=== PATIENT | male | born 1990 | race Caucasian/White ===

== ENCOUNTER 2019-02-16 12:00 | Emergency (ER) | payer OTHER ==
[2019-02-16 12:16] VITALS: BP 158/101; PULSE 101
[2019-02-16] MEDS ORDERED: ceFAZolin 1 GM Vial IM ONE (12:21)
--- NOTE | 2019-02-16 12:28 | EDM.PDOC ---
ED HPI GENERAL MEDICAL PROBLEM - General Chief Complaint: Upper Extremity Injury/Pain Stated Complaint: CUT FINGER AT WORK Time Seen by Provider: 02/16/19 12:00 Source of Information: Reports: Patient History Limitations: Reports: No Limitations - History of Present Illness INITIAL COMMENTS - FREE TEXT/NARRATIVE: 28 YO WM presents to ER with avulsion injury to right index finger while at work. Pt reports he was fixing a tractor tire when he accidentally got his finger caught between the tire and the wheel hub causing a partial amputation of the tip of the right index finger. Pt came to ER immediately for evaluation after injury and states the bleeding was well controlled after applying pressure to wound. Pt was offered pain medication and he refused at this time. Onset: Sudden Onset Date: 02/16/19 Duration: Hour(s): (1) Location: Reports: Upper Extremity, Right Quality: Reports: Ache Severity: Moderate Improves with: Reports: None Worsens with: Reports: Movement Associated Symptoms: Reports: No Other Symptoms Treatments [employer]: Reports: Dressing(s) Right Finger-Index Pain Score (Numeric/FACES): 4 - Related Data Allergies Allergy/AdvReac Type Severity Reaction Status Date / Time Penicillins Allergy Hives Verified 02/16/19 12:38 Home Meds: Home Meds Doxycycline Monohydrate 100 mg PO BID #20 capsule 02/16/19 [Rx] traMADol [Ultram] 50 mg PO Q6H PRN #15 tab 02/16/19 [Rx] Past Medical History - Past Health History Medical/Surgical History: Denies Medical/Surgical History Social & Family History - Caffeine Use Caffeine Use: Reports: Coffee, Soda Review of Systems - Review of Systems Review Of Systems: See Below Constitutional: Reports: No Symptoms Eyes: Reports: No Symptoms Ears: Reports: No Symptoms Nose: Reports: No Symptoms Mouth/Throat: Reports: No Symptoms Respiratory: Reports: No Symptoms Cardiovascular: Reports: No Symptoms GI/Abdominal: Reports: No Symptoms Genitourinary: Reports: No Symptoms Musculoskeletal: Reports: Hand Pain Skin: Reports: Wound (partial amputation of right index finger tip) Neurological: Reports: No Symptoms Psychiatric: Reports: No Symptoms ED EXAM, GENERAL - Physical Exam Exam: See Below Exam Limited By: No Limitations General Appearance: Alert, WD/WN, No Apparent Distress Respiratory/Chest: No Respiratory Distress, Lungs Clear, Normal Breath Sounds, No Accessory Muscle Use, Chest Non-Tender Cardiovascular: Normal Peripheral Pulses, Regular Rate, Rhythm, No Edema, No Gallop, No JVD, No Murmur, No Rub GI/Abdominal: Normal Bowel Sounds, Soft, Non-Tender, No Organomegaly, No Distention, No Abnormal Bruit, No Mass Back Exam: Normal Inspection, Full Range of Motion, NT Extremities: Normal Range of Motion, No Pedal Edema, Normal Capillary Refill Neurological: Alert, Oriented, CN II-XII Intact, Normal Cognition, Normal Gait, Normal Reflexes, No Motor/Sensory Deficits Psychiatric: Normal Affect, Normal Mood Skin Exam: Warm, Dry, Normal Color, No Rash, Wound/Incision (partial amputation to right index finger tip) Lymphatic: No Adenopathy Course - Vital Signs Last Recorded V/S: Last Vital Signs Temp 36.2 C 02/16/19 12:13 Pulse 101 H 02/16/19 12:13 Resp 24 H 02/16/19 12:13 BP 158/101 H 02/16/19 12:13 Pulse Ox 99 02/16/19 12:13 - Orders/Labs/Meds Orders: Active Orders 24 hr Category Date Time Status Vaccines to be Administered [RC] PER UNIT ROUTINE Care 02/16/19 12:40 Active DRUG SCREEN, URINE [URCHEM] Stat Lab 02/16/19 12:19 Ordered ETHANOL BLOOD MEDICAL [CHEM] Stat Lab 02/16/19 12:19 Ordered Meds: Medications Discontinued Medications Generic Name Dose Route Start Last Admin Trade Name Freq PRN Reason Stop Dose Admin Cefazolin Sodium 1 gm 02/16/19 12:21 Ancef IM 02/16/19 12:22 ONETIME ONE Diphtheria/Tetanus/Acell Pertussis 0.5 ml 02/16/19 12:40 Adacel IM 02/16/19 12:41 .ONCE ONE Ketorolac Tromethamine 60 mg 02/16/19 12:43 Toradol IM 02/16/19 12:44 ONETIME ONE Departure - Departure Time of Disposition: 12:38 Disposition: Home, Self-Care 01 Condition: Good Clinical Impression: Partial traumatic transphalangeal amputation of finger Qualifiers: Encounter type: initial encounter Qualified Code(s): S68.629A - Partial traumatic transphalangeal amputation of unspecified finger, initial encounter - Discharge Information Prescriptions: Doxycycline Monohydrate 100 mg PO BID #20 capsule traMADol [Ultram] 50 mg PO Q6H PRN #15 tab PRN Reason: Pain Instructions: Traumatic Finger Amputation, Laceration Care, Adult Referrals: Elba Higgins MD [Primary Care Provider] - Forms: ED Department Discharge Additional Instructions: 1. discharge home 2. Doxycycline 100mg PO BID x 10 days 3. good wound care- daily dressing changes 4. wound care instructions given 5. follow up in 48 hours for recheck 6. return to ER for worsening symptoms - My Orders Last 24 Hours: My Active Orders 02/16/19 12:19 DRUG SCREEN, URINE [URCHEM] Stat ETHANOL BLOOD MEDICAL [CHEM] Stat 02/16/19 12:40 Vaccines to be Administered [RC] PER UNIT ROUTINE - Assessment/Plan Last 24 Hours: My Active Orders 02/16/19 12:19 DRUG SCREEN, URINE [URCHEM] Stat ETHANOL BLOOD MEDICAL [CHEM] Stat 02/16/19 12:40 Vaccines to be Administered [RC] PER UNIT ROUTINE Assessment:: 1. partial amputation to right index finger tip without bone involvement Plan: 1. discharge home 2. Doxycycline 100mg PO BID x 10 days 3. good wound care- daily dressing changes 4. wound care instructions given 5. follow up in 48 hours for recheck 6. return to ER for worsening symptoms
[2019-02-16] MEDS ORDERED: Diphtheria,Pertussis(Acell),Tetanus Vaccine 0.5 ML SDV IM ONE (12:40)
[2019-02-16] MEDS ORDERED: Ketorolac 60 MG/2 ML SDV IM ONE (12:43)
[2019-02-16 12:51] LABS: BARBITURATE SCREEN,URINE NEGATIVE (NEGATIVE); BENZODIAZEPINES SCREEN,URINE NEGATIVE (NEGATIVE); TCA SCREEN,URINE NEGATIVE (NEGATIVE); THC SCREEN,URINE 50 NG/ML NEGATIVE (NEGATIVE)
--- NOTE | 2019-02-16 12:51 | CR ---
[id number] RAD/RAD Fingers Right Exam: RAD Fingers Right Indication:PAIN SECOND FINGER RIGHT. Comparison: No prior imaging for comparison. Discussion: Amputation of the soft tissues of the second digit. If underlying distal phalanx remains intact. Impression: As above. Ryan Larson MD 02/16/19 [id number] Thank you for allowing us to participate in the care of your patient.
== END 2019-02-16 13:00 | disposition home or self-care (01) ==
LOC: KA.ED 12:00
DX: S68.620A Partial traumatic transphalangeal amputation of right index finger, initial encounter (principal); Z88.0 Allergy status to penicillin; Z23 Encounter for immunization; W23.1XXA Caught, crushed, jammed, or pinched between stationary objects, initial encounter; Y99.0 Civilian activity done for income or pay
CPT/HCPCS: 36415; 73140; 80305; 90471; 90715; 96372; 99283; G0480; J0690; J1885

== ENCOUNTER 2019-04-24 21:55 | Emergency (ER) | payer OTHER, BC ==
[2019-04-24 22:06] VITALS: BP 150/89; PULSE 83
[2019-04-24] MEDS ORDERED: Tetracaine HCl/PF 0.5% 4 ML Bottle EYERT ONE (22:22)
--- NOTE | 2019-04-24 22:46 | EDM.PDOC ---
ED HPI GENERAL MEDICAL PROBLEM - General Chief Complaint: General Stated Complaint: something in right eye Time Seen by Provider: 04/24/19 22:15 Source of Information: Reports: Patient History Limitations: Reports: No Limitations - History of Present Illness INITIAL COMMENTS - FREE TEXT/NARRATIVE: Patient presents with right eye irritation. He says that this morning, about 12 hours ago, he was underneath a car working on it when something fell into his eye. He immediately rubbed his eye to try to remove it. It felt a little better but later became more irritated and very light sensitive. He was wearing safety glasses at the time but the dirt fell in around his glasses. No other injuries or problems at this time. Right Eye Pain Score (Numeric/FACES): 3 - Related Data Allergies Allergy/AdvReac Type Severity Reaction Status Date / Time Penicillins Allergy Hives Verified 04/24/19 21:56 Home Meds: Home Meds . [No Known Home Meds] 04/24/19 [History] Past Medical History - Past Health History Medical/Surgical History: Denies Medical/Surgical History Social & Family History - Caffeine Use Caffeine Use: Reports: Coffee, Soda Caffeine Use Comment: 24 oz/day ED ROS GENERAL - Review of Systems Review Of Systems: ROS reveals no pertinent complaints other than HPI. ED EXAM, GENERAL - Physical Exam Exam: See Below Exam Limited By: No Limitations General Appearance: Alert, WD/WN, No Apparent Distress Eye Exam: Right Eye: Corneal Abrasion, Foreign Body, Left Eye: Normal Inspection , Bilateral Eye: EOMI, PERRL Ears: Normal External Exam, Hearing Grossly Normal Nose: Normal Inspection, No Blood Throat/Mouth: Normal Inspection, Normal Lips, Normal Teeth, Normal Voice Head: Atraumatic, Normocephalic Neck: Normal Inspection, Full Range of Motion Respiratory/Chest: No Respiratory Distress, Lungs Clear, Normal Breath Sounds, No Accessory Muscle Use Cardiovascular: Regular Rate, Rhythm, No Murmur GI/Abdominal: No Distention Back Exam: Full Range of Motion Extremities: Normal Inspection, Normal Range of Motion Neurological: Alert, Oriented, Normal Cognition, No Motor/Sensory Deficits Psychiatric: Normal Affect, Normal Mood Skin Exam: Warm, Dry, Intact, Normal Color, No Rash ED EYE PROCEDURE - Eye Procedure Alcaine Drops Administered: Yes Eye FB Removal: Removal w/ Cotton Swab (small dirt particle attached to anterior cornea that is easily removed) Antibiotic Oinment/Drps Admin: Right Eye Progress: Tetracaine drops (3) are instilled to provide anesthesia. The FB is easily removed with a cotton swab moistened with sterile saline. Fluoroscein is instilled to check for addition FB or abrasions. No FB's are found but there is a small abrasion where the FB was removed. I checked under both upper and lower eyelids as well. Patient tolerated this well. Course - Vital Signs Last Recorded V/S: Last Vital Signs Temp 96.7 F 04/24/19 22:01 Pulse 83 04/24/19 22:01 Resp 18 04/24/19 22:01 BP 150/89 H 04/24/19 22:01 Pulse Ox 98 04/24/19 22:01 - Orders/Labs/Meds Orders: Active Orders 24 hr Category Date Time Status Ciprofloxacin [Ciloxan 0.3% Ophth Soln] Med 04/24/19 23:00 Active 2 ml EYERT Q4HR Medication Orders Ciprofloxacin (Ciloxan 0.3% Ophth Soln) 2 ml EYERT Q4HR HEBERT Meds: Medications Generic Name Dose Route Start Last Admin Trade Name Freq PRN Reason Stop Dose Admin Ciprofloxacin 2 ml 04/24/19 23:00 Ciloxan 0.3% Ophth Soln EYERT Q4HR HEBERT Discontinued Medications Generic Name Dose Route Start Last Admin Trade Name Freq PRN Reason Stop Dose Admin Tetracaine HCl 3 ml 04/24/19 22:22 04/24/19 22:22 Tetracaine 0.5% Steri-Unit Radha EYERT 04/24/19 22:23 3 drop ASDIRECTED ONE Administration - Re-Assessments/Exams Free Text/Narrative Re-Assessment/Exam: 04/24/19 22:50 Discussed findings and expectations. Patient will follow up with an eye doctor if not improving in 24 hours. Gentamicin drops were placed in right eye and bottle sent home with patient for 5-day treatment course. Discharged to home in stable condition. Departure - Departure Time of Disposition: 22:40 Disposition: Home, Self-Care 01 Clinical Impression: Foreign body of right eye Qualifiers: Encounter type: initial encounter Qualified Code(s): T15.91XA - Foreign body on external eye, part unspecified, right eye, initial encounter Corneal abrasion, right Qualifiers: Encounter type: initial encounter Qualified Code(s): S05.01XA - Injury of conjunctiva and corneal abrasion without foreign body, right eye, initial encounter - Discharge Information Instructions: Corneal Abrasion, [id number] Forms: ED Department Discharge Additional Instructions: 1. Use the eye drops as directed for 5 days. 2. If the irritation and pain persists longer than 24 hours follow up with an eye doctor. - My Orders Last 24 Hours: My Active Orders 04/24/19 23:00 Ciprofloxacin [Ciloxan 0.3% Ophth Soln] 2 ml EYERT Q4HR - Assessment/Plan Last 24 Hours: My Active Orders 04/24/19 23:00 Ciprofloxacin [Ciloxan 0.3% Ophth Soln] 2 ml EYERT Q4HR
[2019-04-24] MEDS ORDERED: Gentamicin 0.3% Ophth Soln 5 ML Bottle EYERT SCH (22:50)
[2019-04-24] MEDS ORDERED: Gentamicin 0.3% Ophth Soln 5 ML Bottle ONE (22:53)
[2019-04-24] MEDS ORDERED: Ciprofloxacin 0.3% Ophth Soln 2.5 ML Bottle EYERT SCH (23:00)
[2019-04-25] MEDS ORDERED: Gentamicin 0.3% Ophth Soln 5 ML Bottle EYERT SCH (09:00)
== END 2019-04-24 23:00 | disposition home or self-care (01) ==
LOC: KA.ED 21:55
DX: T15.91XA Foreign body on external eye, part unspecified, right eye, initial encounter (principal); Z88.0 Allergy status to penicillin
CPT/HCPCS: 65220; 99283; A9270

== ENCOUNTER 2020-08-13 07:55 | Emergency (ER) | payer BC ==
[2020-08-13] MEDS: Sodium Chloride 0.9% 10 ML Syringe FLUSH PRN ×3 (08:10→09:04)
[2020-08-13 08:27] VITALS: BP 125/108; PULSE 106
--- NOTE | 2020-08-13 08:47 | CR ---
[id number] RAD/RAD Lumbar Spine 2-3V EXAM: AP AND LATERAL LUMBAR SPINE. INDICATION: Back pain COMPARISON: No previous similar exam is available for comparison. FINDINGS: There are early degenerative changes of the lumbosacral Junction There is a mild ileus There is no fracture or subluxation IMPRESSION: EARLY DEGENERATIVE CHANGES AT L5-S1 Ariel Morrissey MD 08/13/20 [id number] Thank you for allowing us to participate in the care of your patient.
[2020-08-13] MEDS ORDERED: Ketorolac 30 MG/ML SDV IVPUSH ONE (08:50)
[2020-08-13] MEDS ORDERED: methylPREDNISolone Sodium Succinate 125 MG/2 ML SDV IVPUSH ONE (08:50)
--- NOTE | 2020-08-13 08:50 | EDM.PDOC ---
ED HPI GENERAL MEDICAL PROBLEM - General Chief Complaint: General Stated Complaint: BACK PAIN Time Seen by Provider: 08/13/20 08:44 Source of Information: Reports: Patient History Limitations: Reports: No Limitations - History of Present Illness INITIAL COMMENTS - FREE TEXT/NARRATIVE: 30 YO WM PRESENTS TO ER COMPLAINING OF LOW BACK PAIN WITH PAIN RADIATING DOWN HIS RIGHT LEG. PT REPORTS PAIN BEGAN LAST WEEK. PT WENT TO [facility] WITHOUT RELIEF. PT REPORTS 2 DAYS AGO HE WAS MOVING A WASH/DRYER AND MIGHT HAVE IRRITATED HIS BACK HIS PAIN HAS BECOME MORE CONSTANT. PT REPORTS HE'S BEEN UP SINCE 4AM DUE TO DISCOMFORT. PT DENIES WEAKNESS OR DIFFICULTY AMBULATING, BUT REPORTS INCREASED PARAESTHESIAS WITH WEIGHT BEARING. PT DENIES BOWEL OR BLADDER INCONTINENCE, NO SADDLE ANESTHESIA. Onset Date: 08/08/20 Duration: Day(s): (5) Location: Reports: Back, Lower Extremity, Right Quality: Reports: Ache Severity: Moderate Improves with: Reports: Rest Worsens with: Reports: Movement Associated Symptoms: Reports: No Other Symptoms. Denies: Fever/Chills, Weakness Right Leg Pain Score (Numeric/FACES): 7 - Related Data Allergies Allergy/AdvReac Type Severity Reaction Status Date / Time Penicillins Allergy Hives Verified 08/13/20 08:14 Home Meds: Home Meds Orphenadrine [Norflex] 100 mg PO BID PRN #10 tab 08/13/20 [Rx] predniSONE [Prednisone] 20 mg PO DAILY #15 tablet 08/13/20 [Rx] traMADol [Ultram] 50 mg PO Q6H PRN #12 tab 08/13/20 [Rx] Past Medical History - Past Health History Medical/Surgical History: Denies Medical/Surgical History Social & Family History - Tobacco Use Tobacco Use Status *Q: Current Every Day Tobacco User Years of Tobacco use: 10 Packs/Tins Daily: 0.5 - Caffeine Use Caffeine Use: Reports: Coffee, Soda Caffeine Use Comment: 24 oz/day - Alcohol Use Days Per Week of Alcohol Use: 3 Number of Drinks Per Day: 3 Total Drinks Per Week: 9 - Recreational Drug Use Recreational Drug Use: No ED ROS GENERAL - Review of Systems Review Of Systems: See Below Constitutional: Reports: No Symptoms HEENT: Reports: No Symptoms Respiratory: Reports: No Symptoms Cardiovascular: Reports: No Symptoms Endocrine: Reports: No Symptoms GI/Abdominal: Reports: No Symptoms : Reports: No Symptoms. Denies: Dysuria, Flank Pain, Incontinence, Urinary Retention Musculoskeletal: Reports: Back Pain, Leg Pain Skin: Reports: No Symptoms Neurological: Reports: Tingling. Denies: Difficulty Walking, Weakness, Gait Disturbance Psychiatric: Reports: No Symptoms Hematologic/Lymphatic: Reports: No Symptoms Immunologic: Reports: No Symptoms ED EXAM, GENERAL - Physical Exam Exam: See Below Exam Limited By: No Limitations General Appearance: Alert, WD/WN, No Apparent Distress Head: Atraumatic, Normocephalic Neck: Normal Inspection, Supple, Non-Tender, Full Range of Motion Respiratory/Chest: No Respiratory Distress, Lungs Clear, Normal Breath Sounds, No Accessory Muscle Use, Chest Non-Tender Cardiovascular: Normal Peripheral Pulses, Regular Rate, Rhythm, No Edema, No Gallop, No JVD, No Murmur, No Rub GI/Abdominal: Normal Bowel Sounds, Soft, Non-Tender, No Organomegaly, No Distention, No Abnormal Bruit, No Mass Back Exam: Full Range of Motion, Muscle Spasm. No: CVA Tenderness (R), Paraspinal Tenderness, Vertebral Tenderness Extremities: Normal Inspection, Normal Range of Motion, Non-Tender, Normal Capillary Refill, No Pedal Edema Neurological: Alert, Oriented, CN II-XII Intact, Normal Cognition, Normal Gait, Normal Reflexes, No Motor/Sensory Deficits Psychiatric: Normal Affect, Normal Mood Skin Exam: Warm, Dry, Intact, Normal Color, No Rash Lymphatic: No Adenopathy Course - Vital Signs Last Recorded V/S: Last Vital Signs Temp 96.4 F L 08/13/20 08:00 Pulse 106 H 08/13/20 08:00 Resp 18 08/13/20 08:00 BP 125/108 H 08/13/20 08:00 Pulse Ox 98 08/13/20 08:00 - Orders/Labs/Meds Orders: Active Orders 24 hr Category Date Time Status Peripheral IV Care [RC] . DIRECTED Care 08/13/20 08:08 Active Lumbar Spine 2 or 3V [CR] Stat Exams 08/13/20 08:07 Ordered Sodium Chloride 0.9% [Saline Flush] Med 08/13/20 08:07 Active 10 ml FLUSH Q8HR PRN Peripheral IV Insertion Adult [OM.PC] Routine Oth 08/13/20 08:07 Ordered Medication Orders Sodium Chloride (Saline Flush) 10 ml FLUSH Q8HR PRN PRN Reason: keep vein open Meds: Medications Generic Name Dose Route Start Last Admin Trade Name Jonathan PRN Reason Stop Dose Admin Sodium Chloride 10 ml 08/13/20 08:07 Saline Flush FLUSH Q8HR PRN keep vein open Departure - Departure Time of Disposition: 09:06 Disposition: Home, Self-Care 01 Condition: Good Clinical Impression: Sciatica Qualifiers: Laterality: right Qualified Code(s): M54.31 - Sciatica, right side - Discharge Information Prescriptions: Orphenadrine [Norflex] 100 mg PO BID PRN #10 tab PRN Reason: Muscle Spasm predniSONE [Prednisone] 20 mg PO DAILY #15 tablet traMADol [Ultram] 50 mg PO Q6H PRN #12 tab PRN Reason: Pain Instructions: Sciatica Referrals: Elba Higgins MD [Primary Care Provider] - Additional Instructions: 1. DISCHARGE HOME 2. ULTRAM 50MG 1-2 TABLETS EVERY 6 HOURS NEEDED FOR PAIN 3. NORFLEX 100MG TWICE DAILY NEEDED MUSCLE RELAXER 4. PREDNISONE 60MG DAILY X 5 DAYS 5. FOLLOW UP WITH PCP FOR FURTHER EVALUATION AND TREATMENT 6. CONSIDER PHYSICAL THERAPY OR ADDITIONAL IMAGING IF SYMPTOMS FAIL TO IMPROVE OR WORSEN 7. RETURN TO ER FOR WORSENING SYMPTOMS Sepsis Event Note (ED) - Evaluation Sepsis Screening Result: No Definite Risk - Focused Exam Vital Signs: Vital Signs Temp Pulse Resp BP Pulse Ox 08/13/20 08:00 96.4 F L 106 H 18 125/108 H 98 - My Orders Last 24 Hours: My Active Orders 08/13/20 08:07 Lumbar Spine 2 or 3V [CR] Stat Sodium Chloride 0.9% [Saline Flush] 10 ml FLUSH Q8HR PRN Peripheral IV Insertion Adult [OM.PC] Routine 08/13/20 08:08 Peripheral IV Care [RC] . DIRECTED - Assessment/Plan Last 24 Hours: My Active Orders 08/13/20 08:07 Lumbar Spine 2 or 3V [CR] Stat Sodium Chloride 0.9% [Saline Flush] 10 ml FLUSH Q8HR PRN Peripheral IV Insertion Adult [OM.PC] Routine 08/13/20 08:08 Peripheral IV Care [RC] . DIRECTED Assessment:: 1. SCIATICA Plan: 1. DISCHARGE HOME 2. ULTRAM 50MG 1-2 TABLETS EVERY 6 HOURS NEEDED FOR PAIN 3. NORFLEX 100MG TWICE DAILY NEEDED MUSCLE RELAXER 4. PREDNISONE 60MG DAILY X 5 DAYS 5. FOLLOW UP WITH PCP FOR FURTHER EVALUATION AND TREATMENT 6. CONSIDER PHYSICAL THERAPY OR ADDITIONAL IMAGING IF SYMPTOMS FAIL TO IMPROVE OR WORSEN 7. RETURN TO ER FOR WORSENING SYMPTOMS
== END 2020-08-13 09:35 | disposition home or self-care (01) ==
LOC: KA.ED 07:55
DX: M54.41 Lumbago with sciatica, right side (principal); Z72.0 Tobacco use; Z88.0 Allergy status to penicillin
CPT/HCPCS: 72100; 96374; 96375; 99283; 99283-25; J1885; J2930; J3360